=== PATIENT | female | born 1955 | race Two or more races ===

== ENCOUNTER → 2023-10-30 | Outpatient (CLI) | payer OTHER ==
[~2023-10-30] VITALS: Ht 152.4 cm; Wt 59.4 kg
[2023-10-30] MEDS: ADENOSINE 50 MG in GIVE UN-DILUTED 0 ML IV ONE (11:16)
== END | disposition home or self-care (01) ==
LOC: XY 09:44
PROVIDERS: ATTEND Specialist
DX: R00.1 Bradycardia, unspecified (principal); R00.2 Palpitations
CPT/HCPCS: 93017; J0153